=== PATIENT | female | born 1975 | race Caucasian/White ===

== ENCOUNTER → 2017-04-29 08:03 | Outpatient (CLI) | payer BC, SELFPAY ==
[2017-04-29 12:08] LABS: Absolute Lymphocyte Count 1.19 X10^3/ul (0.83-4.51); Absolute Neutrophil Count 2.2 X10^3/uL (2.0-7.7); Basophil# 0.02 X10^3/uL; Basophil% 0.5 % (0-1); Eosinophil# 0.07 X10^3/uL; Eosinophils% 1.8 % (0-5); Hematocrit 39.8 % (37-47); Hemoglobin 12.7 g/dl (12.0-15.0); Lymphocyte # 1.19 X10^3/ul (4.0); Lymphocyte % 30.9 % (19-41); Mean Corp Hgb Conc 31.9 g/gl (32-36); Mean Corpuscular Hgb 29.6 pg (27.0-32.0); Mean Corpuscular Volume 92.8 fL (81-99); Mean Platelet Vol. 10.9 fl (6.2-12.0); Monocyte% 10.4 % (0-10); Neutrophil # 2.17 X10^3/uL (2.7-7.7); Neutrophil % 56.4 % (47-70); Platelet Count 192 K/mm3 (150-450); RBC Distribution Width CV 12.9 % (11.6-14.6); RBC Distribution Width SD 42.8 fl (35.1-43.9); Red Blood Count 4.29 M/mm3 (4.2-5.4); White Blood Count 3.9 K/mm3 (4.4-11.0)
[2017-04-29 12:15] LABS: POSITIVE COUNT NO; POSITIVE DIFFERENTIAL NO; POSITIVE MORPHOLOGY NO
[2017-04-29 12:21] LABS: ALB/GLOB Ratio 1.1 RATIO (0.9-2.4); AST(SGOT) 7 U/L (15-37); Alanine Aminotransfer ALT/SGPT 26 U/L (13-56); Albumin, Serum 3.6 g/dL (3.2-5.0); Alkaline Phosphatase 72 U/L (45-117); Anion Gap 7 (5-15); BUN 10 mg/dL (7-18); BUN/Creat Ratio 16.9 RATIO (10-20); Calcium,Total 8.3 mg/dL (8.5-10.1); Chloride 105 mmol/L (98-107); Cholesterol 136 mg/dL (200); Creatinine, Serum 0.59 mg/dL (0.55-1.02); EST Glomerular Filtration Rate 119 mL/min (>60); Est Glom Filt Rate - Afr Amer 144 mL/min (>60); Ferritin 9 ng/mL (8-252); Globulin 3.4 g/dL (2.2-4.2); Glucose 90 mg/dL (74-106); High Density Lipoprotein 63 mg/dL; Iron 84 ug/dL (50-170); Sodium Level 140 mmol/L (136-145); Triglycerides 45 mg/dL; Very Low Density Lipoprotein 9 mg/dL (5-40)
[2017-04-29 12:26] LABS: Vitamin B12 163 pg/mL (211-911)
== END ==
PROVIDERS: Family Provider Family Medicine; PCP Family Medicine; Visit Provider Family Medicine
DX: D64.9 Anemia, unspecified (principal); E61.1 Iron deficiency; E53.8 Deficiency of other specified B group vitamins; Z98.84 Bariatric surgery status; E78.5 Hyperlipidemia, unspecified
CPT/HCPCS: 36415; 80053; 80061; 82607; 82728; 83540; 85025

== ENCOUNTER → 2017-05-05 13:56 | Outpatient (CLI) | payer BC, SELFPAY ==
--- NOTE | 2017-05-05 14:06 | RAD_ITS ---
STUDY: X-RAY - SACRUM/COCCYX REASON FOR EXAM: Female, 41 years old. Pain TECHNIQUE: 4 view(s) of the sacrum and coccyx were obtained. COMPARISON: None. FINDINGS: Normal bilateral sacroiliac joints. Normal visualized sacral ala and fused sacral bodies. Normal sacrococcygeal junction with a normal angulation. Normal coccygeal segments. The presacral soft tissue structures are unremarkable. RAD/Sacrum-Coccyx min 2 Views IMPRESSION: Normal x-rays of the sacrum and coccyx. Electronically Signed: Nicholas Anderson DO at 21:55 EST Tel [phone], Service support ,
--- NOTE | 2017-05-05 14:06 | RAD_ITS ---
STUDY: X-RAY - LUMBAR SPINE REASON FOR EXAM: Female, 41 years old. Pain TECHNIQUE: 3 view(s) of the lumbar spine were obtained. COMPARISON: None FINDINGS: Normal lumbar lordosis. There is no substantial scoliosis. There is a normal alignment of the vertebrae. Normal vertebral bodies and endplates. Normal disc space heights. The soft tissue structures are unremarkable. RAD/Lumbar Spine 2 or 3 Views IMPRESSION: Normal x-ray examination of the lumbar spine. Electronically Signed: Nicholas Anderson DO at 21:54 EST Tel [phone], Service support ,
== END ==
PROVIDERS: Family Provider Family Medicine; PCP Family Medicine; Visit Provider Family Medicine
DX: M54.5 Low back pain (principal); R22.2 Localized swelling, mass and lump, trunk; M53.3 Sacrococcygeal disorders, not elsewhere classified
CPT/HCPCS: 72100; 72220

== ENCOUNTER → 2018-01-28 16:41 | Outpatient (CLI) | payer BC, SELFPAY ==
[2014-10-09 06:27] VITALS: BMI 29.2
[2018-01-28 17:23] LABS: Hematocrit 39.1 % (37-47); Mean Corp Hgb Conc 30.7 g/gl (32-36); Mean Corpuscular Hgb 27.4 pg (27.0-32.0); Mean Corpuscular Volume 89.3 fL (81-99); Mean Platelet Vol. 10.6 fl (6.2-12.0); Platelet Count 267 K/mm3 (150-450); RBC Distribution Width CV 14.4 % (11.6-14.6); RBC Distribution Width SD 47.1 fl (35.1-43.9); Red Blood Count 4.38 M/mm3 (4.2-5.4); White Blood Count 5.8 K/mm3 (4.4-11.0)
[2018-01-28 17:24] LABS: Scan Indicated on CBC? Y/N NO
[2018-01-28 17:59] LABS: Thyroid Stim Hormone (TSH) 1.75 uIU/mL (0.358-3.74)
[2018-01-28 18:09] LABS: Hemoglobin A1c 5.6 % (4.2-6.3)
--- OUTSIDE RECORDS SUMMARY | 2018-03-25 22:51 | XMS RPT_ITS ---
:1975 Author Organization [facility] Care Team Providers Name Role Phone Elva Bush Attending Unavailable Malys, Elva Primary Care Unavailable Malys, Elva Attending Unavailable Malys, Elva Referring Unavailable Malys, Elva Primary Care Unavailable Jose Gerber Attending Unavailable Malys, Elva Primary Care Unavailable PROBLEMS PROBLEMS DATE TYPE CONDITION / CODE ATTENDING STATUS SOURCE 04/29/2017 Unknown D64.9 - Anemia, Malys, Elva Active [facility] unspecified / Community D64.9(ICD-10) Hospital Repository 04/29/2017 Unknown E61.1 - Iron Malys, Elva Active [place] deficiency / Community E61.1(ICD-10) Hospital Repository 04/29/2017 Unknown E53.8 - Malys, Elva Active [facility] Deficiency of Community other specified B Hospital group vitamins / Repository E53.8(ICD-10) 04/29/2017 Unknown Z98.84 - Malys, Elva Active [facility] Bariatric surgery Community status / Hospital Z98.84(ICD-10) Repository 04/29/2017 Unknown E78.5 - Malys, Elva Active [facility] Hyperlipidemia, Community unspecified / Hospital E78.5(ICD-10) Repository PROCEDURES PROCEDURES No Procedure Records FoundRESULTS RESULTS CBC-COMPLETE BLOOD CNT Collected: 01/28/2018 Status: F Source: [place] NO DIFF 4:42 [place] [facility] [place] CODE TESTS RESULT OUT OF RANGE REFERENCE UNITS LAB L100.1000 4.4-11.0 K/mm3 Normal WBC 5.8 LAB L100.1200 4.2-5.4 M/mm3 Normal RBC 4.38 LAB L100.1300 12.0-15.0 g/dl Normal HGB 12.0 LAB L100.1400 37-47 % Normal HCT 39.1 LAB L100.1500 81-99 fL Normal MCV 89.3 LAB L100.1600 27.0-32.0 pg Normal MCH 27.4 LAB L100.1700 32-36 g/gl Low MCHC 30.7 LAB L100.1810 11.6-14.6 % Normal RDW CV 14.4 LAB L100.1820 35.1-43.9 fl High RDW SD 47.1 LAB L100.1900 150-450 K/mm3 Normal PLT 267 LAB L100.2000 6.2-12.0 fl Normal MPV 10.6 Performed By: #### L100.0500 #### [facility] [address] [place], [place], [id number] THYROID STIM HORMONE Collected: 01/28/2018 Status: F Source: [place] (TSH) 4:42 PM [facility] [place] CODE TESTS RESULT OUT OF RANGE REFERENCE UNITS LAB L501.9520 0.358-3.74 uIU/mL Normal TSH 1.75 Performed By: #### L501.9520 #### [facility] [address] [place], [place], [id number] HEMOGLOBIN A1C Collected: 01/28/2018 Status: F Source: [place] 4:42 PM [facility] [place] CODE TESTS RESULT OUT OF RANGE REFERENCE UNITS LAB L501.9985 4.2-6.3 % Normal HGB A1C 5.6 Performed By: #### L501.9985 #### [facility] [address] [place], [address] LUMBAR SPINE 2 OR 3 Observed: 05/05/2017 Status: F Source: [place] VIEWS 2:06 PM [facility] HOSPITAL REPOSITORY [facility] Imaging Services [address] [place] [address] Lumbar Spine 2 or 3 Views MR#: [id number] Acct: [id number] Name: CAROLYN CASTAÑEDA Rep #: [id number] : 1975 F 41 From: Nicholas Anderson DO PCP: Elva Bush DO Status: REG CLI Study: Lumbar Spine 2 or 3 Views Date of Exam: 05/05/17 Exam# [id number] Ordering Dr: Elva Bush DO STUDY: X-RAY - LUMBAR SPINE REASON FOR EXAM: Female, 41 years old. Pain TECHNIQUE: 3 view(s) of the lumbar spine were obtained. COMPARISON: None FINDINGS: Normal lumbar lordosis. There is no substantial scoliosis. There is a normal alignment of the vertebrae. Normal vertebral bodies and endplates. Normal disc space heights. The soft tissue structures are unremarkable. RAD/Lumbar Spine 2 or 3 Views IMPRESSION: Normal x-ray examination of the lumbar spine. Electronically Signed: Nicholas Anderson DO at 21:54 EST Tel [phone], Service support , CC: Elva Bush DO Block Piler: Signed SACRUM-COCCYX MIN 2 VIEWS Observed: 05/05/2017 Status: F Source: [place] 2:06 PM [facility] HOSPITAL REPOSITORY [facility] Imaging Services [address] [place] [address] Sacrum-Coccyx min 2 Views MR#: [id number] Acct: [id number] Name: CAROLYN CASTAÑEDA Ruddy Rep #: [id number] : 1975 F 41 From: Nicholas Anderson DO PCP: Elva Bush DO Status: REG CLI Study: Sacrum-Coccyx min 2 Views Date of Exam: 05/05/17 Exam# [id number] Ordering Dr: Elva Bush DO STUDY: X-RAY - SACRUM/COCCYX REASON FOR EXAM: Female, 41 years old. Pain TECHNIQUE: 4 view(s) of the sacrum and coccyx were obtained. COMPARISON: None. FINDINGS: Normal bilateral sacroiliac joints. Normal visualized sacral ala and fused sacral bodies. Normal sacrococcygeal junction with a normal angulation. Normal coccygeal segments. The presacral soft tissue structures are unremarkable. RAD/Sacrum-Coccyx min 2 Views IMPRESSION: Normal x-rays of the sacrum and coccyx. Electronically Signed: Nicholas Anderson DO at 21:55 EST Tel [phone], Service support , CC: Elva Bush DO Block Piler: Signed CBC W/DIFF, AUTOMATED Collected: 04/29/2017 Status: F Source: [place] 8:06 AM [facility] [place] CODE TESTS RESULT OUT OF RANGE REFERENCE UNITS LAB L100.1000 4.4-11.0 K/mm3 Low WBC 3.9 LAB L100.1200 4.2-5.4 M/mm3 Normal RBC 4.29 LAB L100.1300 12.0-15.0 g/dl Normal HGB 12.7 LAB L100.1400 37-47 % Normal HCT 39.8 LAB L100.1500 81-99 fL Normal MCV 92.8 LAB L100.1600 27.0-32.0 pg Normal MCH 29.6 LAB L100.1700 32-36 g/gl Low MCHC 31.9 LAB L100.1810 11.6-14.6 % Normal RDW CV 12.9 LAB L100.1820 35.1-43.9 fl Normal RDW SD 42.8 LAB L100.1900 150-450 K/mm3 Normal PLT 192 LAB L100.2000 6.2-12.0 fl Normal MPV 10.9 LAB L100.2100 47-70 % Normal NEUT% 56.4 LAB L100.2200 19-41 % Normal LY% 30.9 LAB L100.2300 0-10 % High MONO% 10.4 LAB L100.2400 0-5 % Normal EO% 1.8 LAB L100.2500 0-1 % Normal BASO% 0.5 LAB L100.2550 0.0-0.9 % Normal IM GRAN % 0.000 Result Comment: IG% - Immature Granulocytes (promyelocytes, myelocytes and metamyelocytes) > 1% indicates that a LEFT SHIFT is Present. LAB L100.2620 2.0-7.7 X10 3/uL Normal Absolute Neut 2.2 LAB L100.2720 0.83-4.51 X10 3/ul Normal Absolute Lymph 1.19 Performed By: #### L100.0100 #### [facility] [address] [place], [address] COMPREHENSIVE METABOLIC Collected: 04/29/2017 Status: F Source: [facility] 8:06 AM [facility] [place] CODE TESTS RESULT OUT OF RANGE REFERENCE UNITS LAB L501.0100 74-106 mg/dL Normal GLU 90 Result Comment: Please note revised GLUCOSE reference range effective 2017. LAB L501.1000 7-18 mg/dL Normal BUN 10 LAB L501.1100 0.55-1.02 mg/dL Normal CREAT,SERUM 0.59 Result Comment: The validity of the calculated GFR AND GFRAA in patients over 70 years has not been determined. Clinical correlation is essential. LAB L501.1110 >60 mL/min Normal EST GFR 119 Result Comment: Non- GFR Calc LAB L501.1115 >60 mL/min Normal EST GFR - AA 144 Result Comment: GFR Calc LAB L501.1300 10-20 RATIO Normal BUN/CRE 16.9 LAB L501.1500 6.4-8.2 g/dL T Normal PROT 7.0 LAB L501.1800 3.2-5.0 g/dL Normal ALB 3.6 LAB L501.1950 2.2-4.2 g/dL Normal GLOB 3.4 LAB L501.2000 0.9-2.4 RATIO Normal A/G 1.1 LAB L501.2200 8.5-10.1 mg/dL Low CA 8.3 LAB L501.4100 15-37 U/L Low AST 7 LAB L501.4305 45-117 U/L Normal ALK P 72 LAB L501.4405 13-56 U/L Normal ALT 26 Result Comment: Please note revised ALT reference range effective 2017. LAB L501.4600 0.20-1.00 mg/dL Normal T BILI 0.60 LAB L501.5300 136-145 mmol/L Normal NA 140 LAB L501.5600 3.5-5.1 mmol/L Normal K 4.0 LAB L501.5900 98-107 mmol/L Normal CL 105 LAB L501.6100 21.0-32.0 mmol/L Normal CO2 28.0 LAB L501.6200 5-15 Normal GAP 7 Performed By: #### L500.4050, L500.4100, L503.6150, L503.6550 #### [facility] [address] [place], [address] LIPID PROFILE Collected: 04/29/2017 Status: F Source: [place] 8:06 AM [facility] [place] CODE TESTS RESULT OUT OF RANGE REFERENCE UNITS LAB L501.4900 200 mg/dL Normal CHOL 136 Result Comment: <200 mg/dL Desirable 200-240 mg/dL Borderline >240 mg/dL High Risk LAB L501.5000 mg/dL Normal TRIG 45 Result Comment: The drugs N-Acetylcysteine and Metamizole may falsely depress this assay. Serum Triglycerides Reference Interval Normal <150 mg/dL Borderline high 150 - 199 mg/dL High 200 - 499 mg/dL Very High > or = 500 mg/dL LAB L501.6400 mg/dL Normal HDL 63 Result Comment: The drugs N-Acetylcysteine and Metamizole may falsely depress this assay. Reference Range HDL <40 mg/dL Low HDL Cholesterol HDL >or= 60 mg/dL High HDL Cholesterol LAB L501.6500 0-130 mg/dL Normal LDL 64 LAB L501.6600 5-40 mg/dL Normal VLDL 9 Performed By: #### L500.4050, L500.4100, L503.6150, L503.6550 #### [facility] [address] [place], [address] IRON Collected: 04/29/2017 Status: F Source: [place] 8:06 AM [facility] [place] CODE TESTS RESULT OUT OF RANGE REFERENCE UNITS LAB L503.6150 50-170 ug/dL Normal IRON 84 Performed By: #### L500.4050, L500.4100, L503.6150, L503.6550 #### [facility] [address] [place], [address] FERRITIN Collected: 04/29/2017 Status: F Source: [place] 8:06 AM [facility] [place] CODE TESTS RESULT OUT OF RANGE REFERENCE UNITS LAB L503.6550 8-252 ng/mL Normal FERRITIN 9 Performed By: #### L500.4050, L500.4100, L503.6150, L503.6550 #### [facility] [address] [place], [address] VITAMIN B12 Collected: 04/29/2017 Status: F Source: [place] 8:06 AM [facility] [place] CODE TESTS RESULT OUT OF REFERENCE UNITS RANGE LAB L503.0105 211-911 pg/mL Low Vitamin B12 163 Performed By: #### L503.0105 #### [facility] [address] [place], [address] ALLERGIES ALLERGIES DATE TYPE / CODE NAME / CODE REACTION SEVERITY SOURCE 10/02/2014 Drug methyldopa/F Other Unknown [facility] Allergy/4160 [id number]( Hospital 57419(SNOMED NORM) Repository CT) ENCOUNTERS ENCOUNTERS ADMIT/DISCHARGE ACCOUNT ADMITTING ENCOUNTER LOCATION SOURCE NUMBER CLASS 01/28/2018 [id number] Ambulatory [facility] 1 [facility] ing:WOBLAB Repository 05/05/2017 [id number] Ambulatory [facility] 2 [facility] ing:RAD Repository 04/29/2017 [id number] Ambulatory [facility] 7 [facility] ing:BFHLAB Repository PAYERS PAYERS ENCOUNTER GUARANTOR PAYER SUBSCRIBER SOURCE 01/28/2018 Kg Primary CAROLYN Tim [id number] Sammie Insurance:ANTHEMPolic URCONISDOB: [facility] [place], [place] Number: [id number] Hospital [id number]: (330 [id number] Repository [phone] () Date:[id number] [address] [place] [id number]: 01/28/2018 Secondary NOT GIVENUNK [facility] Insurance:SELF PAY [facility] Number: Effective Repository Date:2018-01-28 05/05/2017 Kg Primary CAROLYN Tim [id number] [place] Insurance:ANTHEMPolic URCONISDOB: [facility] [place] Number: [id number] Hospital [id number]: (330 [id number] Repository [phone] () Date:[id number] [address] [place] [id number]: 05/05/2017 Secondary NOT GIVENUNK [facility] Insurance:SELF PAY [facility] Number: Effective Repository Date:2017-05-05 04/29/2017 Kg Primary CAROLYN Tim [id number] [place] Insurance:ANTHEMPolic URCONISDOB: [facility] [place] Number: [id number] Hospital [address]Yrd: (330 [id number] Repository [phone] () Date:[id number] [address] [place] [address] [id number]: 04/29/2017 Secondary NOT GIVENUNK [place] Insurance:SELF PAY [facility] Number: Effective Repository Date:2017-04-29
== END ==
PROVIDERS: Family Provider Family Medicine; PCP Family Medicine; Visit Provider Obstetrics & Gynecology
DX: R53.81 Other malaise (principal); N95.1 Menopausal and female climacteric states
CPT/HCPCS: 36415; 83036; 84443; 85027

== ENCOUNTER → 2018-03-29 13:57 | Outpatient (CLI) | payer BC, SELFPAY ==
--- NOTE | 2018-03-29 14:00 | BI_ITS ---
MAMMOGRAPHY - BILATERAL SCREENING REASON FOR EXAM: Female, 42 years old. Routine annual screening examination. PERTINENT HISTORY: Non-contributory. TECHNIQUE: Digital bilateral breast jeovanny (3D mammographic acquisition) in the CC and MLO projections. 2-D mediolateral oblique (MLO) and craniocaudad (CC) views of both breasts were obtained. CAD: Full Field Digital Mammography with Computer Added Detection was performed. COMPARISON: Comparison is made with prior study dated July 31, 2016. FINDINGS: Breast Composition: The breasts are almost entirely fatty. There are no dominant masses or suspicious calcifications. No other significant abnormalities are identified. There has been no significant change since the prior study. BI/SCREENING MAMM (CAD), BILAT IMPRESSION: Stable bilateral screening mammogram. Yearly follow-up mammogram recommended. (A) ASSESSMENT CATEGORY: BIRADS Category 1: Negative. A letter regarding these results will be sent to the patient by the facility within 30 days. Approximately 10% of breast cancers are not detected by mammography. A normal mammogram should not delay biopsy of a clinically suspicious abnormality. [id number] Electronically Signed: Harvey Medina MD at 10:15 EST , Service support ,
== END ==
PROVIDERS: Family Provider Family Medicine; PCP Family Medicine; Referring Provider Obstetrics & Gynecology; Visit Provider Obstetrics & Gynecology
DX: Z12.31 Encounter for screening mammogram for malignant neoplasm of breast (principal)
CPT/HCPCS: 77063; 77067

== ENCOUNTER 2018-09-12 18:10 | Observation (INO) | payer BC, SELFPAY ==
[2018-09-12 18:11] VITALS: BP 146/94; PULSE 100; RESP 18; TEMP 37.5; O2SAT 97; BMI 30.9
[2018-09-12] MEDS: Morphine 4 MG/ML Syringe IV (19:19)
[2018-09-12] MEDS: Ondansetron 4 MG/2 ML Vial IV (19:19)
[2018-09-12 19:21] LABS: Absolute Lymphocyte Count 0.78 X10^3/ul (0.83-4.51); Absolute Neutrophil Count 6.2 X10^3/uL (2.0-7.7); Basophil# 0.01 X10^3/uL; Basophil% 0.1 % (0-1); Eosinophil# 0.02 X10^3/uL; Eosinophils% 0.3 % (0-5); Hematocrit 36.7 % (37-47); Hemoglobin 11.6 g/dl (12.0-15.0); Lymphocyte # 0.78 X10^3/ul (4.0); Lymphocyte % 10.2 % (19-41); Mean Corp Hgb Conc 31.6 g/gl (32-36); Mean Corpuscular Volume 88.4 fL (81-99); Mean Platelet Vol. 10.8 fl (6.2-12.0); Monocyte% 9.1 % (0-10); Neutrophil # 6.16 X10^3/uL (2.7-7.7); Neutrophil % 80.2 % (47-70); Platelet Count 172 K/mm3 (150-450); RBC Distribution Width CV 14.9 % (11.6-14.6); Red Blood Count 4.15 M/mm3 (4.2-5.4); White Blood Count 7.7 K/mm3 (4.4-11.0)
[2018-09-12 19:28] LABS: POSITIVE COUNT NO; POSITIVE DIFFERENTIAL NO; POSITIVE MORPHOLOGY NO
[2018-09-12 19:33] LABS: ALB/GLOB Ratio 0.8 RATIO (0.9-2.4); AST(SGOT) 15 U/L (15-37); Alanine Aminotransfer ALT/SGPT 37 U/L (13-56); Albumin, Serum 3.2 g/dL (3.2-5.0); Alkaline Phosphatase 54 U/L (45-117); Anion Gap 5 (5-15); BUN 8 mg/dL (7-18); BUN/Creat Ratio 11.6 RATIO (10-20); Calcium,Total 8.2 mg/dL (8.5-10.1); Chloride 106 mmol/L (98-107); Creatinine, Serum 0.69 mg/dL (0.55-1.02); EST Glomerular Filtration Rate 98 mL/min (>60); Est Glom Filt Rate - Afr Amer 119 mL/min (>60); Globulin 3.8 g/dL (2.2-4.2); Glucose 111 mg/dL (74-106); Lipase 109 U/L (73-393); Potassium 3.6 mmol/L (3.5-5.1); Sodium Level 139 mmol/L (136-145)
--- NOTE | 2018-09-12 19:38 | ED.VIS.GEN ---
History of Present Illness Chief Complaint: Abd Pain Informant: Patient Onset: Today Context: Sudden Onset Timing: Continuous Quality: Sharp Location: And left upper quadrant Current Severity: Mild Maximum Severity: Severe Worsened by: P.o. intake Relieved by: Nothing Associated Symptoms: Nausea, bloating Narrative: Patient is a 42-year-old woman status post cholecystectomy who presents with bilateral sharp abdominal pain that is worse with p.o. intake. She states even water makes it worse. She denies fever, chills night sweats. Does report nasal congestion which he felt was secondary to recent travel. She does complain of nonproductive cough and mild shortness of breath. She denies leg pain, swelling or discoloration. There is no history of PE or DVT. She denies urologic symptoms. She denies back pain. There is no history of trauma. She has not noted a rash. Prior similar symptoms: No Recent Illness/Hospitalization: No - Past Medical History (1) Gastroenteritis Status: Acute (2) History of gastric bypass Status: Chronic Comment: (3) Iron deficiency anemia Status: Chronic Past Medical History - Allergies and Home Meds Allergies/Adverse Reactions: Allergies methyldopa Allergy (Verified 09/12/18 18:11) Other TACHYCARDIA Primary Care Physician: Elva Bush DO [Primary Care Provider] - 5-7 Days Surgical History: cholecystectomy, gastric bypass, tonsillectomy, - - tubal ligation, C section, endometrial ablation, Lives: Spouse/ Significant Other Smoking Status: Never smoker Drugs: None - Family History Maternal Family History: Reports: - - Her mother of lung Cancer, she was a smoker. There is a hx of DM in a maternal aunt Paternal Family History: Reports: - - her father traumatically in an accident Review of Systems General: Denies: Chills, Fever, Sweats Eyes: Denies: Visual changes - bilaterally, Diplopia ENT: Denies: Bilateral ear pain, Rhinorrhea, Sore throat Cardiovascular: Denies: Chest pain, Palpitations Respiratory: Denies: Dyspnea, Cough, Dyspnea on exertion Gastrointestinal: Reports: Abdominal pain, Nausea. Denies: Diarrhea, Constipation - Last bowel movement yesterday and normal for patient, Melena, Hematochezia Genitourinary: Denies: Dysuria, Hematuria, Frequency Musculoskeletal: Denies: Back pain, Extremity Pain Skin: Denies: Rash, Wounds Neurological: Denies: Headache, Weakness, Parasthesia, Numbness Hematologic: Denies: Easy bruising, Easy bleeding Allergy: Denies: Uticaria, Swelling of the mouth Physical Exam Vital Signs/Narrative: Vital Signs Temp Pulse Resp BP Pulse Ox 09/12/18 18:11 99.5 F H 100 18 146/94 H 97 Inital Vital Signs reviewed: Yes General: Well nourished, Well developed, No Acute Distress Head: Normocephalic, Atraumatic Eyes: Perrl, EOMI. Negative for: Pale conjunctiva, Scleral icterus, - ENT: Moist mucous membranes, No rhinorrhea, TM's clear Neck: Negative for: Supple, Nontender, No lymphadenopathy, No JVD, - Cardiovascular: Regular rate, Regular rhythm, No murmurs, Normal S1, Normal S2 Respiratory: No distress, CTA bilaterally, Chest nontender Abdomen: Soft, Nondistended, No masses, Tender, Hypoactive bowel sounds. Negative for: Normal bowel sounds, Guarding, Rebound tenderness, Hyperactive bowel sounds, Hepatomegaly, Splenomegaly, Mass Back: Nontender, Normal Inspection. Negative for: CVA tenderness, Spinal tenderness Extremities: Nontender, No edema Skin: Normal color, No rash Neurological: Alert, Oriented x3, Cranial nerves II-XII grossly intact, Normal Strength, Normal Sensation Psychological: Tearful Diagnostic/Tx/Re-eval Impressions Abdomen/Pelvis CT 09/12/18 20:37 IMPRESSION: Status post Manny-en-Y gastric bypass surgery. Prominent inflammatory changes of an approximately 25 cm long segment of the manny segment of jejunum. This is remote from the gastrojejunal anastomotic site and the jejunojejunal anastomotic site, and therefore it is unlikely to represent peptic ulcer disease or anastomotic complication. He always uncertain, however, presumably, this represents an infectious process or an immune-mediated process. Would consider upper endoscopy for further evaluation. Nonvisualization of the gallbladder with mild bile duct dilatation, probably representing previous cholecystectomy and physiologic bile duct dilatation. Suggest correlation with surgical history. Previous hysterectomy. 2.5 cm complex left ovarian cyst, probably representing a recently ruptured and partially collapsed cyst. Small amount of free fluid in the posterior cul-de-sac of the pelvis. Mild splenomegaly. Small splenic cysts. No evidence for appendicitis or diverticulitis. No evidence for bowel obstruction or ileus. Electronically Signed: Kj Head MD at 21:26 EDT , Service support , 09/12/18 20:37 Abdomen/Pelvis W IV Cont ONLY [CT] Stat Laboratory Results 09/12/18 09/12/18 19:00 19:00 WBC 7.7 RBC 4.15 L Hgb 11.6 L Hct 36.7 L MCV 88.4 MCH 28.0 MCHC 31.6 L RDW 14.9 H RDW Differential 48.0 H Plt Count 172 MPV 10.8 Immature Gran % (Auto) 0.100 Neut % (Auto) 80.2 H Lymph % (Auto) 10.2 L Story % (Auto) 9.1 Eos % (Auto) 0.3 Baso % (Auto) 0.1 Absolute Neuts (auto) 6.2 Absolute Lymphs (auto) 0.78 L Total Counted Not Reportable Sodium 139 Potassium 3.6 Chloride 106 Carbon Dioxide 28.0 Anion Gap 5 BUN 8 Creatinine 0.69 Estim Creat Clear Calc 111.00 Est GFR (MDRD) Af Amer 119 Est GFR (MDRD) Non-Af 98 BUN/Creatinine Ratio 11.6 Glucose 111 H Calcium 8.2 L Total Bilirubin 0.30 AST 15 ALT 37 Alkaline Phosphatase 54 Total Protein 7.0 Albumin 3.2 Globulin 3.8 Albumin/Globulin Ratio 0.8 L Lipase 109 - Medical Decision Making Bilateral upper abdominal pain nausea will obtain CBC to assess white count and H&H. Electrode panel was obtained to assess renal function in the event a CT is warranted. Patient was informed of CAT scan results. Since there is concern this represents inflammatory process and where the inflammation is will treat with PPI and systemic steroids. This is not an area that is accessible by endoscopy. Plan is to administer IV Decadron and IV Pepcid. If patient is able to tolerate liquids will discharge to home. Vision unable to tolerate clear liquids will page hospitalist for admission ED Disposition - Plan for ED Patient: Disposition: Home or Assisted Living Diagnosis: Jejunitis Referrals: Elva Bush DO [Primary Care Provider] - 5-7 Days
--- NOTE | 2018-09-12 20:37 | CT_ITS ---
STUDY: CT ABDOMEN AND PELVIS WITHOUT CONTRAST REASON FOR EXAM: Female, 42 years old. Upper abdominal pain. Nausea and fever. Previous gastric bypass. RADIATION DOSAGE (If Supplied By Facility): CTDIvol = ( 14.99 ) mGy, DLP = ( 1320.54 ) mGycm TECHNIQUE: Transaxial images were obtained from the dome of the diaphragm to the symphysis pubis without oral contrast, and without intravenous contrast. Sagittal and coronal images were reconstructed. Individualized dose optimization techniques were used for this CT. COMPARISON: None. FINDINGS: The visualized lung bases are unremarkable. The visualized portions of the heart are within normal limits. Normal liver. There is nonvisualization of the gallbladder, probably representing a previous cholecystectomy, but possibly representing contracted gallbladder. There is mild central intrahepatic bile duct dilatation and the common bile is prominent at 8 mm, which may be normal physiologic changes if the patient has had previous cholecystectomy. The spleen is mildly enlarged. There are small splenic cysts. Normal pancreas. Normal bilateral adrenal glands. Normal right kidney. Normal left kidney. The patient is status post gastrojejunostomy with Manny-en-Y jejunal-jejunal anastomosis. There is no evidence for breakdown of the anastomotic site and the proximalmost manny segment of jejunum is normal in appearance, with no demonstrated mural thickening to suggest peptic ulcer disease. However, there is prominent mural thickening of an approximately 25 cm long segment of the Manny segment of jejunum, commencing about 15 cm from the gastrojejunal anastomotic site. Presumably this represents an inflammatory process, however, the significance of its location and limited distribution is uncertain.. The remainder of the small bowel appears normal. Normal colon. The appendix is visualized on coronal images 53-77 and it appears normal.. Normal abdominal aorta. Normal inferior vena cava. Normal retroperitoneum. Normal urinary bladder. There is absence of the uterus consistent with a prior hysterectomy. There is a small amount of free fluid in the posterior cul-de-sac the pelvis. There is a 2.5 cm thick-walled left ovarian cyst with irregular contours, probably representing a recently ruptured and partially collapsed cyst. Normal abdominal wall. Normal osseous structures. CT/Abdomen/Pelvis W IV Cont ONLY IMPRESSION: Status post Manny-en-Y gastric bypass surgery. Prominent inflammatory changes of an approximately 25 cm long segment of the manny segment of jejunum. This is remote from the gastrojejunal anastomotic site and the jejunojejunal anastomotic site, and therefore it is unlikely to represent peptic ulcer disease or anastomotic complication. He always uncertain, however, presumably, this represents an infectious process or an immune-mediated process. Would consider upper endoscopy for further evaluation. Nonvisualization of the gallbladder with mild bile duct dilatation, probably representing previous cholecystectomy and physiologic bile duct dilatation. Suggest correlation with surgical history. Previous hysterectomy. 2.5 cm complex left ovarian cyst, probably representing a recently ruptured and partially collapsed cyst. Small amount of free fluid in the posterior cul-de-sac of the pelvis. Mild splenomegaly. Small splenic cysts. No evidence for appendicitis or diverticulitis. No evidence for bowel obstruction or ileus. Electronically Signed: Kj Head MD at 21:26 EDT , Service support ,
[2018-09-12 22:00] VITALS: BP 128/81; PULSE 88; RESP 18; TEMP 36.9; O2SAT 98
[2018-09-12] MEDS: dexAMETHasone 10 MG/ML Vial IV (22:11)
--- NOTE | 2018-09-12 22:47 | PCM.HP.STD ---
Problem List (1) Abdominal pain Status: Acute Qualifiers: Abdominal location: unspecified location Qualified Code(s): R10.9 - Unspecified abdominal pain History of Present Illness Date of Admission: 09/12/18 Chief Complaint: Abdominal pain - 2 days The patient is a 42 year old F with past medical history of bariatric surgery (Manny-en-Y), status post cholecystectomy obesity who comes in with complaints of abdominal pain that started suddenly 1 day prior to admission. Patient was on vacation in [place] when she had sudden onset of dull burning abdominal pain that is in the upper part of the abdomen and seem to radiate to her back. Pain is constant, and associated with nausea and bloatedness. Pain is worse when she tries to eat or drink. She tried moving her bowels, has had 4 liquid stools. Also complains of subjective fever and chills. Denies any dizziness or palpitations or chest pain or shortness of breath. She never had any episodes like this before. Vitals in the ED showed temperature 99.5 F, heart rate 100, blood pressure 146/94, respirations 18, SPO2 97% on room air. BC count is 7.7, hemoglobin 11.6, platelet count 172, CMP is unremarkable. CT scan of the abdomen and pelvis was suggestive of a 25 cm long segment of the Manny/segment of the jejenum, remote from the gastrojejunal anastomotic site and the jejunal jejunal anastomosis site. 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 Gerber Lives: Spouse/ Significant Other Smoking Status: Never smoker Alcohol: None Drugs: None - *Family History Maternal History Items: - - Her mother of lung Cancer, she was a smoker. There is a hx of DM in a maternal aunt Paternal History Items: - - her father traumatically in an accident Review of Systems Constitutional: Reports: Chills, Fever. Denies: Anorexia, Malaise, Weakness, Weight Change, Fatigue Eyes: Denies: Blurred vision, Cataracts, Conjunctivae Inflammation, Pain, Redness, Vision Change HEENT: Denies: Difficulty Hearing, Difficulty Swallowing, Head Aches, Hearing Changes, Sinus Congestion, Sinus Drainage Cardiovascular: Denies: Chest Pain, Claudication, Orthopnea, Palpitations, Paroxysmal Noc. Dyspnea Respiratory: Denies: Cough, Shortness of breath at rest, Shortness of breath upon exertion, Sputum production Gastrointestinal: Denies: Abdominal Pain, Hematemesis, Hematochezia, Nausea, Vomiting Genitourinary: Denies: Dysuria, Frequency, Incontinence Musculoskeletal: Denies: Joint Pain, Joint stiffness, Joint swelling, Joint Tenderness Skin: Denies: Rash, Wounds Neurological: Denies: Difficulty swallowing, Focal weakness, Numbness, Tingling Psychiatric: Denies: Anxiety, Depression, Homicidal Ideations, Suicidal Ideations Hematologic/ Lymphatic: Denies: Easy Bruising, Easy Bleeding VTE Information - Inpt Only VTE Present on Admission: No VTE Pharm Prophylaxis ordered?: Yes Patient Problems: Active and Suspected Problems Jejunitis (Acute) Abdominal pain (Acute) - Physical Exam General: Alert, Oriented x3, Cooperative, No apparent distress, - - Obese HEENT: Atraumatic, PERRLA, EOMI, Normocephalic Oral: Moist Mucosa Neck: Supple Lungs: Clear to auscultation, Normal air movement Cardiovascular: Regular rate, Regular Rhythm, Normal S1, Normal S2, No murmurs Abdomen: Bowel Sounds Present, Soft, Non-Distended, No Hepato-splenomegaly, Tender - in the upper abdomen Extremities: No edema Skin: No rashes, No breakdown Musculoskeletal: No Tenderness to Palpation of Joints or Extremities Lymphatic: No Cervical, Supraclavicular, or Inguinal Adenopathy Neurological: Cranial nerves II-XII grossly intact, Neuro grossly intact Psych/Mental Status: Normal Affect, Appropriate Vital Signs Temp Pulse Resp BP Pulse Ox 98.4 F 88 18 128/81 H 98 09/12/18 22:00 09/12/18 22:00 09/12/18 22:00 09/12/18 22:00 09/12/18 22:00 Oxygen Delivery Method Room Air Weight: 95 kg Body Mass Index (BMI) 30.9 Laboratory Tests Past 24 Hrs 09/12/18 09/12/18 19:00 19:00 WBC 7.7 RBC 4.15 L Hgb 11.6 L Hct 36.7 L MCV 88.4 MCH 28.0 MCHC 31.6 L RDW 14.9 H RDW Differential 48.0 H Plt Count 172 MPV 10.8 Immature Gran % (Auto) 0.100 Neut % (Auto) 80.2 H Lymph % (Auto) 10.2 L [place] % (Auto) 9.1 Eos % (Auto) 0.3 Baso % (Auto) 0.1 Absolute Neuts (auto) 6.2 Absolute Lymphs (auto) 0.78 L Total Counted Not Reportable Sodium 139 Potassium 3.6 Chloride 106 Carbon Dioxide 28.0 Anion Gap 5 BUN 8 Creatinine 0.69 Estim Creat Clear Calc 111.00 Est GFR (MDRD) Af Amer 119 Est GFR (MDRD) Non-Af 98 BUN/Creatinine Ratio 11.6 Glucose 111 H Calcium 8.2 L Total Bilirubin 0.30 AST 15 ALT 37 Alkaline Phosphatase 54 Total Protein 7.0 Albumin 3.2 Globulin 3.8 Albumin/Globulin Ratio 0.8 L Lipase 109 Assessment/Plan All Active Problems Jejunitis (Acute) Abdominal pain (Acute) Hypokalemia (Acute) Leukopenia (Acute) Gastroenteritis (Acute) 42 year old F with past medical history of bariatric surgery (Manny-en-Y), status post cholecystectomy obesity who comes in with complaints of abdominal pain that started suddenly 1 day prior to admission. 1. Acute abdominal pain secondary to jejunitis, unclear etiology, CT of the abdomen and pelvis shows possible inflammatory vs infectious etiology No family history of inflammatory bowel disease, history of bariatric surgery(Manny-en-Y) Plan: Admit to [facility] n.p.o[facility] general surgery consult-consulted from the ED, IV Solu-Medrol, IV Cipro, IV Flagyl, IV fluids, symptomatic management of pain with morphine as needed. 2. Morbid obesity, BMI 32.3, status post bariatric surgery 3. DVT prophylaxis with heparin subcu Code Visit Inpatient E&M: 45087 Init Hosp L3
[2018-09-12 23:38] VITALS: BP 135/85; PULSE 87; RESP 18; TEMP 37.2; O2SAT 97
[2018-09-12 23:41] VITALS: BMI 32.3
[2018-09-12 23:49] VITALS: BMI 32.3
[2018-09-12] MEDS: 0.9% Normal Saline 1,000 ML 100 ML IV (23:56)
[2018-09-13] VITALS (7 sets, daily range): BP systolic 104–120; BP diastolic 63–69; PULSE 61–78; RESP 16; TEMP 36.1–37.1; O2SAT 96–99
[2018-09-13] MEDS: Morphine 2 MG/ML Syringe IV (00:15)
[2018-09-13] MEDS: metroNIDAZOLE 500 MG/100 ML BAG 100 MG IV ×3 (00:40→14:13)
[2018-09-13] MEDS: 0.9% NaCl Peripheral Flush Adult/Peds IV ×2 (00:41→01:51)
[2018-09-13] MEDS: Ciprofloxacin 400 MG/200 ML BAG 200 MG IV ×2 (02:23→09:16)
[2018-09-13] MEDS: Heparin Injection (Vial) 5,000 UNIT/ML VIAL 5000 UNIT SC ×2 (06:08→14:12)
[2018-09-13 06:24] LABS: Absolute Lymphocyte Count 0.56 X10^3/ul (0.83-4.51); Absolute Neutrophil Count 8.1 X10^3/uL (2.0-7.7); Basophil# 0.01 X10^3/uL; Basophil% 0.1 % (0-1); Hematocrit 35.7 % (37-47); Hemoglobin 11.3 g/dl (12.0-15.0); Lymphocyte # 0.56 X10^3/ul (4.0); Lymphocyte % 6.3 % (19-41); Mean Corp Hgb Conc 31.7 g/gl (32-36); Mean Corpuscular Volume 88.4 fL (81-99); Mean Platelet Vol. 11.7 fl (6.2-12.0); Monocyte# 0.17 X10^3/uL; Monocyte% 1.9 % (0-10); Neutrophil # 8.12 X10^3/uL (2.7-7.7); Neutrophil % 91.5 % (47-70); Platelet Count 148 K/mm3 (150-450); RBC Distribution Width CV 14.9 % (11.6-14.6); Red Blood Count 4.04 M/mm3 (4.2-5.4); White Blood Count 8.9 K/mm3 (4.4-11.0)
[2018-09-13 06:40] LABS: Differential Indicated SCAN CRITERIA MET; POSITIVE COUNT NO; POSITIVE DIFFERENTIAL YES; POSITIVE MORPHOLOGY NO
[2018-09-13 06:56] LABS: Anion Gap 7 (5-15); BUN 8 mg/dL (7-18); BUN/Creat Ratio 11.7 RATIO (10-20); Calcium,Total 8.4 mg/dL (8.5-10.1); Chloride 106 mmol/L (98-107); Creatinine, Serum 0.68 mg/dL (0.55-1.02); EST Glomerular Filtration Rate 100 mL/min (>60); Est Glom Filt Rate - Afr Amer 121 mL/min (>60); Estimated Creatinine Clearance 108.72 ml/min; Glucose 108 mg/dL (74-106); Potassium 3.9 mmol/L (3.5-5.1); Sodium Level 140 mmol/L (136-145)
--- NOTE | 2018-09-13 07:11 | PCM.PROGNOTE ---
Patient Problems: Active and Suspected Problems Jejunitis (Acute) Abdominal pain (Acute) Subjective: The patient is a 42-year-old female with past medical history of bariatric surgery (Manny-en-Y) who presented to the emergency department at [facility] on 09/12/2018 complaining of abdominal pain for the preceding 48 hours. The pain radiated to her back, was constant nd was associated with nausea. She had subjective fevers and chills. CT scan of the abdomen and pelvis showed prominent inflammatory changes of an approximately 25 cm long segment of the Manny segment of the jejunum. The segment was remote from the gastrojejunal anastomotic site and the jejunojejunal anastomotic site. she denied personal or family hx of IBD. CBC revealed a white blood cell count of 7.7 with a left shift. CMP was unremarkable and lipase was within normal limits. She was admitted to the hospital with a diagnosis of acute abdominal pain secondary to enteritis of unclear etiology. She was started on Cipro, Flagyl, IV Solu-Medrol, fluids and pain medication. Consult was ordered with general surgery. Temp at admission was 99.5 but she has been afebrile since. Vital signs were stable. She is maintaining an oxygen saturation of 97 to 99% on room air. She is continues to complain of mild nausea but has not had an emesis since yesterday afternoon at approximately 12 PM. That was also the time of her last bowel movement. She does have a little burning in her throat which may be secondary to prior episodes of emesis. Her gastric bypass surgery was in [address] Kevon Majano and she has not had any problems since that time. She was in [place] and flew back on an overnight flight.....arriving in [place] yesterday early AM. - Physical Exam General: Alert, Oriented x3, Cooperative, No apparent distress, Well developed, Well nourished Oral: Moist Mucosa Lungs: Clear to auscultation Cardiovascular: Regular rate, Regular Rhythm, Normal S1, Normal S2, No murmurs, No Ectopic Activity, No rub noted, No Gallop Abdomen: Soft, Non-Distended, Hypoactive Bowel Sounds, Tender - in the upper abdomen but, no guarding with palpation Extremities: No edema Neurological: Cranial nerves II-XII grossly intact, Neuro grossly intact Psych/Mental Status: Normal Affect, Appropriate Vital Signs Temp Pulse Resp BP Pulse Ox 97.0 F L 70 16 104/63 99 09/13/18 05:40 09/13/18 05:40 09/13/18 05:40 09/13/18 05:40 09/13/18 05:40 Oxygen Delivery Method Room Air Weight: 215 lb 9.793 oz Body Mass Index (BMI) 32.3 Intake and Output for Last 24 Hours 09/11/18 09/12/18 09/13/18 23:59 23:59 23:59 Intake Total 780 / 780 Output Total 600 / 600 Balance 180 / 180 Laboratory Tests Past 24 Hrs 09/12/18 09/12/18 09/13/18 19:00 19:00 05:30 WBC 7.7 RBC 4.15 L Hgb 11.6 L Hct 36.7 L MCV 88.4 MCH 28.0 MCHC 31.6 L RDW 14.9 H RDW Differential 48.0 H Plt Count 172 MPV 10.8 Immature Gran % (Auto) 0.100 Neut % (Auto) 80.2 H Lymph % (Auto) 10.2 L [place] % (Auto) 9.1 Eos % (Auto) 0.3 Baso % (Auto) 0.1 Absolute Neuts (auto) 6.2 Absolute Lymphs (auto) 0.78 L Total Counted Not Reportable Sodium 139 140 Potassium 3.6 3.9 Chloride 106 106 Carbon Dioxide 28.0 27.0 Anion Gap 5 7 BUN 8 8 Creatinine 0.69 0.68 Estim Creat Clear Calc 111.00 108.72 Est GFR (MDRD) Af Amer 119 121 Est GFR (MDRD) Non-Af 98 100 BUN/Creatinine Ratio 11.6 11.7 Glucose 111 H 108 H Calcium 8.2 L 8.4 L Total Bilirubin 0.30 AST 15 ALT 37 Alkaline Phosphatase 54 Total Protein 7.0 Albumin 3.2 Globulin 3.8 Albumin/Globulin Ratio 0.8 L Lipase 109 09/13/18 05:30 WBC 8.9 RBC 4.04 L Hgb 11.3 L Hct 35.7 L MCV 88.4 MCH 28.0 MCHC 31.7 L RDW 14.9 H RDW Differential 48.0 H Plt Count 148 L MPV 11.7 Immature Gran % (Auto) 0.200 Neut % (Auto) 91.5 H Lymph % (Auto) 6.3 L [place] % (Auto) 1.9 Eos % (Auto) 0.0 Baso % (Auto) 0.1 Absolute Neuts (auto) 8.1 H Absolute Lymphs (auto) 0.56 L Total Counted Pending Sodium Potassium Chloride Carbon Dioxide Anion Gap BUN Creatinine Estim Creat Clear Calc Est GFR (MDRD) Af Amer Est GFR (MDRD) Non-Af BUN/Creatinine Ratio Glucose Calcium Total Bilirubin AST ALT Alkaline Phosphatase Total Protein Albumin Globulin Albumin/Globulin Ratio Lipase Medical Necessity - Tobacco Use Smoking Status: Never smoker Assessment/Plan All Active Problems Jejunitis (Acute) Abdominal pain (Acute) Hypokalemia (Acute) Leukopenia (Acute) Gastroenteritis (Acute) Impressions 1. Suspected gastroenteritis-illness came on suddenly and I doubt peptic ulcer disease or inflammatory bowel disease. There is no personal or family history of inflammatory bowel disease. 2. History of Manny-en-Y gastric bypass surgery in 2003 3. Obesity No diarrhea, vomiting in 24 hours. Discontinue Solu-Medrol, Cipro and Flagyl Start clear liquids and continue antiemetics Recheck lab in the a.m. Code Visit OBSV E&M: 65172 Subsequent observation care L2
[2018-09-13 07:16] LABS: Differential Comment SCANNED
--- NOTE | 2018-09-13 08:20 | CON.PCM_ITS ---
Problem List (1) Jejunitis Status: Acute Reason for Consult Date of Consultation: 09/13/18 History of Present Illness: The patient is a 42 year old F presented to the emergency room for mid abdominal cramping. She says she was unable to drink anything yesterday. Today she says that she is feeling much better and she is not having any cramping. Her pain is minimal. She has no nausea or vomiting this morning. 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 Gerber Lives: Spouse/ Significant Other Smoking Status: Never smoker Alcohol: None Drugs: None - *Family History Maternal History Items: - - Her mother of lung Cancer, she was a smoker. There is a hx of DM in a maternal aunt Paternal History Items: - - her father traumatically in an accident Review of Systems Constitutional: Reports: Anorexia. Denies: Fever HEENT: Denies: Difficulty Swallowing Cardiovascular: Denies: Chest Pain Respiratory: Denies: Cough, Shortness of Breath Gastrointestinal: Reports: Abdominal Pain, Nausea. Denies: Hematemesis, Hematochezia, Vomiting Musculoskeletal: Denies: Joint Tenderness Neurological: Denies: Balance problems Psychiatric: Denies: Depression Hematologic/ Lymphatic: Denies: Anemia Patient Problems: Active and Suspected Problems Jejunitis (Acute) Abdominal pain (Acute) - Physical Exam General: Alert, Oriented x3 Neck: No JVD Lungs: Normal air movement Cardiovascular: Regular rate, Regular Rhythm Abdomen: Soft, Non-Distended Extremities: No clubbing Skin: No rashes Musculoskeletal: No Muscle Wasting Neurological: Cranial nerves II-XII grossly intact Psych/Mental Status: Normal Affect Vital Signs Temp Pulse Resp BP Pulse Ox 97.0 F L 70 16 104/63 99 09/13/18 05:40 09/13/18 05:40 09/13/18 05:40 09/13/18 05:40 09/13/18 05:40 Oxygen Delivery Method Room Air Weight: 215 lb 9.793 oz Body Mass Index (BMI) 32.3 Intake and Output for Last 24 Hours 09/11/18 09/12/18 09/13/18 23:59 23:59 23:59 Intake Total 780 / 780 Output Total 600 / 600 Balance 180 / 180 Laboratory Tests Past 24 Hrs 09/12/18 09/12/18 09/13/18 19:00 19:00 05:30 WBC 7.7 RBC 4.15 L Hgb 11.6 L Hct 36.7 L MCV 88.4 MCH 28.0 MCHC 31.6 L RDW 14.9 H RDW Differential 48.0 H Plt Count 172 MPV 10.8 Immature Gran % (Auto) 0.100 Neut % (Auto) 80.2 H Lymph % (Auto) 10.2 L [place] % (Auto) 9.1 Eos % (Auto) 0.3 Baso % (Auto) 0.1 Absolute Neuts (auto) 6.2 Absolute Lymphs (auto) 0.78 L Total Counted Not Reportable Differential Comment Sodium 139 140 Potassium 3.6 3.9 Chloride 106 106 Carbon Dioxide 28.0 27.0 Anion Gap 5 7 BUN 8 8 Creatinine 0.69 0.68 Estim Creat Clear Calc 111.00 108.72 Est GFR (MDRD) Af Amer 119 121 Est GFR (MDRD) Non-Af 98 100 BUN/Creatinine Ratio 11.6 11.7 Glucose 111 H 108 H Calcium 8.2 L 8.4 L Total Bilirubin 0.30 AST 15 ALT 37 Alkaline Phosphatase 54 Total Protein 7.0 Albumin 3.2 Globulin 3.8 Albumin/Globulin Ratio 0.8 L Lipase 109 09/13/18 05:30 WBC 8.9 RBC 4.04 L Hgb 11.3 L Hct 35.7 L MCV 88.4 MCH 28.0 MCHC 31.7 L RDW 14.9 H RDW Differential 48.0 H Plt Count 148 L MPV 11.7 Immature Gran % (Auto) 0.200 Neut % (Auto) 91.5 H Lymph % (Auto) 6.3 L [place] % (Auto) 1.9 Eos % (Auto) 0.0 Baso % (Auto) 0.1 Absolute Neuts (auto) 8.1 H Absolute Lymphs (auto) 0.56 L Total Counted Not Reportable Differential Comment SCANNED Sodium Potassium Chloride Carbon Dioxide Anion Gap BUN Creatinine Estim Creat Clear Calc Est GFR (MDRD) Af Amer Est GFR (MDRD) Non-Af BUN/Creatinine Ratio Glucose Calcium Total Bilirubin AST ALT Alkaline Phosphatase Total Protein Albumin Globulin Albumin/Globulin Ratio Lipase Clinical Impression(s) from Imaging Studies Abdomen/Pelvis CT 09/12/18 20:37 IMPRESSION: Status post Manny-en-Y gastric bypass surgery. Prominent inflammatory changes of an approximately 25 cm long segment of the manny segment of jejunum. This is remote from the gastrojejunal anastomotic site and the jejunojejunal anastomotic site, and therefore it is unlikely to represent peptic ulcer disease or anastomotic complication. He always uncertain, however, presumably, this represents an infectious process or an immune-mediated process. Would consider upper endoscopy for further evaluation. Nonvisualization of the gallbladder with mild bile duct dilatation, probably representing previous cholecystectomy and physiologic bile duct dilatation. Suggest correlation with surgical history. Previous hysterectomy. 2.5 cm complex left ovarian cyst, probably representing a recently ruptured and partially collapsed cyst. Small amount of free fluid in the posterior cul-de-sac of the pelvis. Mild splenomegaly. Small splenic cysts. No evidence for appendicitis or diverticulitis. No evidence for bowel obstruction or ileus. Electronically Signed: Kj Head MD at 21:26 EDT , Service support , Assessment/Plan All Active Problems Jejunitis (Acute) Abdominal pain (Acute) Hypokalemia (Acute) Leukopenia (Acute) Gastroenteritis (Acute) 42-year-old female with jejunitis 1. Patient has thickening of the jejunum distal to her esophageal anastomosis. She was started on steroids and a PPI and she feels much better today. She says that she is not having cramping anymore. I do not know how much benefit she would gain from an endoscopy as this segment is distal and may not be reachable with endoscope. Also patient has normal white count and her pain is improving. I would recommend trying her on a liquid diet and see how she does. If she is doing well she can be discharged home on a liquid diet. Kmaeron Garber MD Pager: [facility] [address] [place] [address], [address] [place] [address] Office:
[2018-09-13] MEDS: 0.9% Normal Saline 1,000 ML 100 ML IV (21:41)
[2018-09-14 02:20] VITALS: BP 110/67; PULSE 69; RESP 16; TEMP 36.6; O2SAT 98
[2018-09-14 06:18] LABS: Hematocrit 31.5 % (37-47); Hemoglobin 9.8 g/dl (12.0-15.0); Mean Corp Hgb Conc 31.1 g/gl (32-36); Mean Corpuscular Hgb 27.5 pg (27.0-32.0); Mean Corpuscular Volume 88.2 fL (81-99); Mean Platelet Vol. 11.8 fl (6.2-12.0); Platelet Count 131 K/mm3 (150-450); RBC Distribution Width CV 14.6 % (11.6-14.6); RBC Distribution Width SD 45.7 fl (35.1-43.9); Red Blood Count 3.57 M/mm3 (4.2-5.4); White Blood Count 7.2 K/mm3 (4.4-11.0)
[2018-09-14 06:19] LABS: Scan Indicated on CBC? Y/N NO
[2018-09-14 06:38] LABS: Anion Gap 4 (5-15); BUN 8 mg/dL (7-18); BUN/Creat Ratio 17.2 RATIO (10-20); Calcium,Total 8.1 mg/dL (8.5-10.1); Chloride 111 mmol/L (98-107); Creatinine, Serum 0.46 mg/dL (0.55-1.02); EST Glomerular Filtration Rate 156 mL/min (>60); Est Glom Filt Rate - Afr Amer 188 mL/min (>60); Estimated Creatinine Clearance 160.71 ml/min; Glucose 98 mg/dL (74-106); Potassium 3.8 mmol/L (3.5-5.1); Sodium Level 140 mmol/L (136-145)
[2018-09-14 08:18] VITALS: BP 125/83; PULSE 71; RESP 16; TEMP 36.8; O2SAT 100
--- NOTE | 2018-09-14 10:57 | DCINST_ITS ---
- Discharge Diagnoses Current Active Problems: Current Active and Chronic Problems Jejunitis (Acute) Abdominal pain (Acute) You will use the following diet at home:: Other - I would stick to a bland full liquid diet for the next 24 to 48 hours and then advance as tolerated. No caffeine....it increases gastric acid secretion and causes spasms of the intestines and increased stooling Your food should be the consistency of: Soft (bite-sized & easy to chew/swallow) Your liquids should be the consistency of: Regular/Thin Discharge Activity: Return to Normal Activity Call your doctor if you observe: Fever of 101 or Higher, - - recurrent abdmominal pain, intractable nausea and or vomiting, severe diarrhea Additional Instructions: I think you have gastroenteritis. this is infalmmation ofthe stomach and the intestines that causes nausea, vomiting, abdominal pain and cramping and diarrhea. It is usually due to a virus.....this is marcia a prblem associated with cruise ships.....it is very contagious. The treatment is supportive and includes hydrating, antiemetics and immodium or Kaopectate. I have given you a prescription for PEPcid to decrease the acid in the stomach for the next 10 days and a presciption for Zofran which you can take as needed for nausea and vomiting every 8 hours. I will send a cpy of your discharge summary to Dr. Bush. The ovarian cyst and small cysts in the spleen are nothing to worry about. Pending Tests on Discharge: none Allergies/Adverse Reactions: Allergies methyldopa Allergy (Verified 09/12/18 18:11) Other TACHYCARDIA Medications to take at Discharge Famotidine [Pepcid] 40 mg PO BID #20 tab 09/14/18 Ondansetron [Zofran Odt] 4 mg PO Q8H PRN PRN #10 tab 09/14/18 The following prescriptions were given: Famotidine [Pepcid] 40 mg PO BID #20 tab Transmission Status: Pending to [facility] Ondansetron [Zofran Odt] 4 mg PO Q8H PRN PRN #10 tab PRN Reason: nausea and/or vomiting Transmission Status: Pending to [facility] Primary Care Physician: Elva Bush DO [Primary Care Provider] - 5-7 Days Please follow up with your Primary Care Physician in: 5-7 days Test Results: Test results from this visit will be discussed in further detail at your follow- up appointment, if applicable. Proposed Discharge Date: 09/14/18
--- NOTE | 2018-09-14 11:11 | PCM.DC.SUM ---
Discharge Date and Diagnosis - Problem List Patient Problems: Active and Suspected Problems Left ovarian cyst (Acute) Thrombocytopenia (Acute) Abdominal pain (Acute) Date of Admission: 09/12/18 Date of Discharge: 09/14/18 - Primary Discharge Diagnosis Active and Suspected Problems Abdominal pain (Acute) Gastroenteritis - likely viral Left ovarian cyst (Acute) - may be chronic, no prior testing to compare to Thrombocytopenia (Acute) - possibly due to heparin vs viral - Secondary Discharge Diagnosis Chronic Problems Splenic cysts (Chronic) History of Angela-en-Y gastric bypass (Chronic) - 2003 Obesity (Chronic) Iron deficiency anemia (Chronic) Menorrhagia (Chronic) Hospital Course and Treatment Imaging Results: Clinical Impression(s) from Imaging Studies Abdomen/Pelvis CT 09/12/18 20:37 IMPRESSION: Status post Angela-en-Y gastric bypass surgery. Prominent inflammatory changes of an approximately 25 cm long segment of the angela segment of jejunum. This is remote from the gastrojejunal anastomotic site and the jejunojejunal anastomotic site, and therefore it is unlikely to represent peptic ulcer disease or anastomotic complication. He always uncertain, however, presumably, this represents an infectious process or an immune-mediated process. Would consider upper endoscopy for further evaluation. Nonvisualization of the gallbladder with mild bile duct dilatation, probably representing previous cholecystectomy and physiologic bile duct dilatation. Suggest correlation with surgical history. Previous hysterectomy. 2.5 cm complex left ovarian cyst, probably representing a recently ruptured and partially collapsed cyst. Small amount of free fluid in the posterior cul-de-sac of the pelvis. Mild splenomegaly. Small splenic cysts. No evidence for appendicitis or diverticulitis. No evidence for bowel obstruction or ileus. Electronically Signed: Kj Head MD at 21:26 EDT , Service support , Laboratory Results - last 24 hr 09/14/18 09/14/18 05:46 05:46 WBC 7.2 RBC 3.57 L Hgb 9.8 L Hct 31.5 L MCV 88.2 MCH 27.5 MCHC 31.1 L RDW 14.6 RDW Differential 45.7 H Plt Count 131 L MPV 11.8 Sodium 140 Potassium 3.8 Chloride 111 H Carbon Dioxide 25.0 Anion Gap 4 L BUN 8 Creatinine 0.46 L Estim Creat Clear Calc 160.71 Est GFR (MDRD) Af Amer 188 Est GFR (MDRD) Non-Af 156 BUN/Creatinine Ratio 17.2 Glucose [address] Kameron Garber[place] general surgery Operations: None Procedures: None Summary of Care Provided: The patient is a 42-year-old female with a past medical history of bariatric surgery (Angela-en-Y in 2003) on no chronic medications who presented to the emergency department at [facility] on 09/12/2018 complaining of abdominal pain for the preceding 48 hours. The pain radiated to her back, was constant and associated with nausea. She had subjective fevers and chills. She had recently been on vacation and she was on a cruise ship. CT scan of the abdomen and pelvis showed prominent inflammatory changes of an approximately 25 cm long segment of the Angela segment of the jejunum. The segment was remote from the gastrojejunal anastomotic site and the jejunojejunal anastomotic site. She denied personal or family hx of IBD. CBC revealed a white blood cell count of 7.7 with a left shift. CMP was unremarkable and lipase was within normal limits. She was admitted to the hospital with a diagnosis of acute abdominal pain secondary to enteritis of unclear etiology. She was started on Cipro, Flagyl, IV Solu-Medrol, fluids and pain medication. Consult was ordered with general surgery. She was seen by Dr. Garber who did not feel there was an indication for endoscopy. She was started on clear liquids on 09/13/2018 and this was tolerated well. Solu-medrol, Cipro and Flagyl were discontinued because it was felt she likely had viral gastroenteritis. She was advanced to a full liquid diet on 09/14/2018 in the a.m. and tolerated this without nausea, vomiting or recurrent abdominal pain. She was afebrile for the duration of her hospital stay. White blood cell count was within normal limits throughout the stay. On the date of discharge platelets were mildly decreased at 131,000 and I suspect this is related to subcutaneous heparin used for DVT prophylaxis. She was discharged home on 09/14/2018 in stable condition and given prescriptions for Pepcid 40 mg once daily x10 days and Zofran ODT 4 mg 1 sublingual every 8 hours as needed for nausea/vomiting. She will follow-up with Dr. Bush in the office in 3 to 5 days. PHYSICAL EXAM: GENERAL: alert, oriented X 3, Cooperative, NAD ORAL: moist mucosa, no mucosal lesions NECK: No JVD, supple, trachea midline LUNGS: CTA, symmetric chest expansion HEART: RRR, Normal S1 and S2, no rub, no gallop ABDOMEN: soft, NT, ND, BS present, no guarding with palpation EXTREMITIES: no edema, no cyanosis, no calf tenderness SKIN: No rashes, no breakdown NEUROLOGIC: no focal neurologic deficits PSYCH: appropriate, normal affect, pleasant This note was generated with [employer] dictation software. It may contain incorrect words, spelling, and punctuation that were not noted in checking the note before signing. Patient Problems: Active and Suspected Problems Left ovarian cyst (Acute) Thrombocytopenia (Acute) Abdominal pain (Acute) - Physical Exam Vital Signs Temp Pulse Resp BP Pulse Ox 98.2 F 71 16 125/83 H 100 09/14/18 08:18 09/14/18 08:18 09/14/18 08:18 09/14/18 08:18 09/14/18 08:18 Oxygen Delivery Method Room Air Weight: 215 lb 9.793 oz Body Mass Index (BMI) 32.3 Intake and Output for Last 24 Hours 09/12/18 09/13/18 09/14/18 23:59 23:59 23:59 Intake Total 780 / 3255 3443 / 3443 Output Total 600 / 600 800 / 800 Balance 180 / 2655 2643 / 2643 Laboratory Tests Past 24 Hrs 09/14/18 09/14/18 05:46 05:46 WBC 7.2 RBC 3.57 L Hgb 9.8 L Hct 31.5 L MCV 88.2 MCH 27.5 MCHC 31.1 L RDW 14.6 RDW Differential 45.7 H Plt Count 131 L MPV 11.8 Sodium 140 Potassium 3.8 Chloride 111 H Carbon Dioxide 25.0 Anion Gap 4 L BUN 8 Creatinine 0.46 L Estim Creat Clear Calc 160.71 Est GFR (MDRD) Af Amer 188 Est GFR (MDRD) Non-Af 156 BUN/Creatinine Ratio 17.2 Glucose 98 Calcium 8.1 L Discharge Activity: Return to Normal Activity Call your doctor if you observe: Fever of 101 or Higher, - - recurrent abdmominal pain, intractable nausea and or vomiting, severe diarrhea Home Medications: Medications to take at Discharge Famotidine [Pepcid] 40 mg PO BID #20 tab 09/14/18 Ondansetron [Zofran Odt] 4 mg PO Q8H PRN PRN #10 tab 09/14/18 Following Prescrptions Were Given to Patient: Famotidine [Pepcid] 40 mg PO BID #20 tab Transmission Status: Pending to [facility] Ondansetron [Zofran Odt] 4 mg PO Q8H PRN PRN #10 tab PRN Reason: nausea and/or vomiting Transmission Status: Pending to [facility] Primary Care Physician: Elva Bush DO [Primary Care Provider] - 5-7 Days Please follow up with your Primary Care Physician in: 5-7 days Disposition: Home Minutes spent on discharge:: 30 Patient Condition:: Good Medical Necessity - Tobacco Use Smoking Status: Never smoker Tobacco Use: Non-smoker Meaningful Use Info Meaningful Use Diagnoses (Choose all that apply): None applicable Code Visit OBSV E&M: 69886 Observation care discharge
[2018-09-14 11:28] VITALS: BP 121/74; PULSE 68; RESP 16; TEMP 37.1; O2SAT 100
== END 2018-09-14 12:05 | disposition home or self-care (01) ==
LOC: ED 22:34 → MS3 23:11
PROVIDERS: Admitting Provider Internal Medicine; Emergency Provider Emergency Medicine; Family Provider Family Medicine; PCP Family Medicine; Visit Provider Internal Medicine
DX: K52.9 Noninfective gastroenteritis and colitis, unspecified (principal); N83.292 Other ovarian cyst, left side; D69.6 Thrombocytopenia, unspecified; Z98.84 Bariatric surgery status; D50.9 Iron deficiency anemia, unspecified; E66.9 Obesity, unspecified; Z68.32 Body mass index [BMI] 32.0-32.9, adult; Z71.3 Dietary counseling and surveillance
CPT/HCPCS: 36415; 74177; 80048; 80053; 83690; 85025; 85027; 96361; 96365; 96366; 96367; 96372; 96375; 96376; 97802; 99218; 99284; J7030; J7040; Q9967; A4216; G0378; J0744; J2405; J3490

== ENCOUNTER → 2019-03-30 16:10 | Outpatient (CLI) | payer BC, SELFPAY ==
--- NOTE | 2019-03-30 16:12 | BI_ITS ---
MAMMOGRAPHY - BILATERAL SCREENING REASON FOR EXAM: Female, 43 years old. Routine annual screening examination. PERTINENT HISTORY: Non-contributory. TECHNIQUE: Digital bilateral breast hamzah (3D mammographic acquisition) in the CC and MLO projections. 2-D mediolateral oblique (MLO) and craniocaudad (CC) views of both breasts were obtained. CAD: Full Field Digital Mammography with Computer Added Detection was performed. COMPARISON: Comparison is made with prior study dated September 26, 2018 and July 31, 2016. FINDINGS: Breast Composition: The breasts are almost entirely fatty. There are no dominant masses or suspicious calcifications. Small bilateral benign-appearing axillary lymph nodes. No other significant abnormalities are identified. There has been no significant change since the prior study. BI/SCREEN MAMM (CAD) W/HAMZAH BILAT IMPRESSION: Stable bilateral screening mammogram. Yearly follow-up mammogram recommended. (A) ASSESSMENT CATEGORY: BIRADS Category 2: Benign. A letter regarding these results will be sent to the patient by the facility within 30 days. Approximately 10% of breast cancers are not detected by mammography. A normal mammogram should not delay biopsy of a clinically suspicious abnormality. [id number] Electronically Signed: Harvey Medina, at 8:23 EST , Service support ,
== END ==
PROVIDERS: Family Provider Family Medicine; PCP Family Medicine; Referring Provider Obstetrics & Gynecology; Visit Provider Obstetrics & Gynecology
DX: Z12.31 Encounter for screening mammogram for malignant neoplasm of breast (principal)
CPT/HCPCS: 77063; 77067

== ENCOUNTER 2021-08-19 08:56 | Day surgery (SDC) | payer BC, SELFPAY ==
--- NOTE | 2021-08-19 09:03 | HP.PCM_ITS ---
HPI - General HPI Narrative CAROLYN CASTAÑEDA, is a 45 F who presents for screening colonoscopy. Patient's never had a previous colonoscopy. Patient denies any family history of colon cancer. Patient denies any chronic abdominal pain/nausea/reflux/vomiting. Patient's bowel moods daily denies any blood. Patient's only abdominal surgery is laparoscopic gastric bypass. PFSH Medical History Alcohol use Anemia Back pain Basal cell carcinoma History of edema Non-smoker Home Medications cyanocobalamin (vitamin B-12) 1,000 mcg/mL injection solution 1,000 mcg IM QMONTH 06/20/21 [History Last Taken Unknown] ferrous gluconate 324 mg (37.5 mg iron) tablet 324 mg PO DAILY 06/20/21 [History Last Taken Unknown] Allergy/AdvReac Type Severity Reaction Status Date / Time methyldopa Allergy Other Verified 08/15/21 09:44 Family History Mother Lung cancer Surgical History (Updated 08/15/21 @ 09:52 by Bren Mora) History of History of gastric bypass History of hysterectomy Hx laparoscopic cholecystectomy Hx of dilation and curettage Hx of LASIK Hx of shoulder surgery Hx of tonsillectomy Hx of tubal ligation Social History Smoking Status: Never smoker Past Medical/Surgical History Planned Operation Planned Operative Procedure/s: CSCOPE OA S.O.S: No Previous Hospitalizations/Surgeries HX Hospitalizations: No HX of Surgeries: Gastric bypass (2003), cholecystectomy, tonsillectomy, tubal ligation, 2000 SHOULDER, LEFT 2010, endometrial ablation D&C Any Problems With Anesthesia: No You/Your Family Experience Fever (Hyperthermia) With Anes: No Cholinesterase deficiency: No Cardiovascular Hx Chest Pain within Last 2 months: No Hx of Irregular Heartbeat and/or Afib: No Hx Heart Attack: No Hx Congestive Heart Failure: No Hx Rheumatic Fever: No Hx Hypertension: No Hx Internal Defibrillator: No Hx Pacemaker: No Hx Cardiac Catheterization: No Hx Cardiac Surgery/Stents/Etc.: No Hx Stress Test: No Hx Pain in Legs when Walking/Leg Cramps: No Respiratory Chronic Cough: No HX of Shortness of Breath: No Hoarseness: No Hx Chronic Obstructive Pulmonary Disease (COPD): No Hx Asthma: No Hx Emphysema: No Hx Sleep Apnea: No CPAP: No BIPAP: No Hx Respiratory Tract Infection/Cold (presently): No Do You Snore Loudly (louder than talking or can be heard): No Do You Often Feel Tired/ Fatigued/ Sleepy Dring Daytime?: No Has Anyone Observed You Stop Breathing During Sleep?: No Result (for STOP score): Negative Hx Smoking: No Smoking Status: Never smoker Gastrointestinal Hx Gastroesophageal Reflux: No Hx Gastrointestinal Disorders: No Hx Gastrointestinal Bleed: No Hx Ulcer: No Hx Hiatal Hernia: No Difficulty Chewing/Swallowing: No Special diet followed at home: No Hx Unplanned Weight Loss of 20#: No HX Unplanned Weight Gain of 20#: No Neurological Hx Seizures: No HX Syncope/Blackout Spells/Unconsciousness: No Hx Transient Ischemic Attacks (TIA): No Hx Multiple Sclerosis: No Hx Parkinson's Disease: No Hx Head/Neck Injury: No Hx Headaches: No Hx Back Injury/Pain: No Recent Onset of Speech Difficulty: No Restless Legs: No Does patient have nerve stimulator: No Blood Disorder Hx Leukemia: No Bleeding Tendencies: No Hx Deep Vein Thrombosis: No Hx High Cholesterol: No Blood Transmitted Disease: No Hx Hepatitis: No Hx Cirrhosis: No Hx Anemia: Yes (hx) Hx Blood Disorders: No Reproduction : No Is Patient Lactating: Yes Hx Hysterectomy: No Hx Tubal Ligation: Yes Are You Post Menopause: No Genitourinary Hx Renal Disease: No Hx Dialysis: No Musculoskeletal Hx Arthritis: No Hx Rheumatoid Arthritis: No Hx Gout: No Recent Onset of an Orthopedic Problem: No Endocrine Hx Diabetes: No Insulin: No Thyroid Disease: No Hx Steroid Therapy: No Psycho/Social Hx Substance Use: No Hx Alcohol Use: Yes (SOCIALLY) Hx Anxiety: No Hx Depression: No Mental Illness: No Hx Dementia: No Miscellaneous Hx Cancer: No Recent Exposure to Contagious Disease: No Hx of C-Diff: No Any Loose Teeth: No Allergies methyldopa Allergy (Verified 08/15/21 09:44) Other TACHYCARDIA Maternal: Family History Mother Lung cancer - (Her mother of lung Cancer, she was a smoker. There is a hx of DM in a maternal aunt) Paternal: Family History Mother Lung cancer - (her father traumatically in an accident) Discharge Is Pt Admitted From a [facility], or a Residential: No After D/C, Where Do you Plan to Go: Return Home Physical Exam Const alert, oriented x3 and no apparent distress HEENT normocephalic and head/scalp atraumatic Resp normal respiratory effort Cardio regular rate GI soft to palpation and non-tender; Negative for non-distended Palpation: Negative for guarding Extremity no clubbing, cyanosis or edema Neuro CN's II-XII intact bilaterally Psych mental status grossly normal Assessment & Plan Assessment/Plan (1) Encounter for screening for malignant neoplasm of colon: Surgery Risks - Colonoscopy Risks Include but are not Limited To: Risks include but are not limited to: Bleeding, perforation requiring further surgery, inability to complete colonoscopy requiring barium enema.
[2021-08-19 09:20] VITALS: BP 153/87; PULSE 77; RESP 16; TEMP 36.8; O2SAT 98; BMI 34.7
[2021-08-19] MEDS: Lactated Ringers 1,000 ML 15 ML IV (09:32)
--- NOTE | 2021-08-19 10:16 | OP.COLON_ITS ---
Patient Name: Sydnie Clay Procedure Date: 08/19/2021 9:48 AM Date of : 1975 Age: 45 Procedure: Colonoscopy Indications: Screening for colorectal malignant neoplasm Providers: Sunshine Ellis MD Medicines: Monitored Anesthesia Care Patient Profile: This is a 45 year old female. Last Colonoscopy: none. The patient's first colonoscopy is today. Complications: No immediate complications. Procedure: Pre-Anesthesia Assessment: - Prior to the procedure, a History and Physical was performed, and patient medications and allergies were reviewed. The patient's tolerance of previous anesthesia was also reviewed. The risks and benefits of the procedure and the sedation options and risks were discussed with the patient. All questions were answered, and informed consent was obtained. Prior Anticoagulants: The patient has taken no previous anticoagulant or antiplatelet agents. ASA Grade Assessment: Per anesthesia. After reviewing the risks and benefits, the patient was deemed in satisfactory condition to undergo the procedure. After I obtained informed consent, the scope was passed under direct vision. Throughout the procedure, the patient's blood pressure, pulse, and oxygen saturations were monitored continuously. The Colonoscope was introduced through the anus and advanced to the cecum, identified by appendiceal orifice and ileocecal valve. The colonoscopy was performed without difficulty. The patient tolerated the procedure well. Scope In: 9:51:12 AM Scope Withdrawal Time 0 hours 12 minutes 31 seconds Scope Out: 10:11:38 AM Total Procedure Duration Time 0 hours 20 minutes 26 seconds Findings: The perianal and digital rectal examinations were normal. The entire examined colon appeared normal on direct and retroflexion views. Impression: - The entire examined colon is normal on direct and retroflexion views. - No specimens collected. Recommendation: - Discharge patient to home. - Resume previous diet. - Continue present medications. - Repeat colonoscopy in 10 years for screening purposes. Procedure Code(s): --- Professional --- 30067, PT, Colonoscopy, flexible; diagnostic, including collection of specimen(s) by brushing or washing, when performed (separate procedure) Diagnosis Code(s): --- Professional --- Z12.11, Encounter for screening for malignant neoplasm of colon CPT copyright 2017 [employer]. All rights reserved. The codes documented in this report are preliminary and upon furnace tapper review may be revised to meet current compliance requirements. MD Sunshine Verde MD 08/19/2021 10:15:33 AM This report has been signed electronically. Number of Addenda: 0 Note Initiated On: 08/19/2021 9:48 AM
--- NOTE | 2021-08-19 10:16 | OP.CCLET_ITS ---
08/19/2021 Elva Bush [address] [place] [address] Re : Colonoscopy procedure for Sydnie Clay Dear Dr. Bush This procedure was performed on Thursday, August 19, 2021. My impressions and recommendations are as follows: Impressions : - The entire examined colon is normal on direct and retroflexion views. - No specimens collected. Recommendations : - Discharge patient to home. - Resume previous diet. - Continue present medications. - Repeat colonoscopy in 10 years for screening purposes. My findings are described in the full procedure note, which is enclosed. If I can be of further assistance, please feel free to contact me at Doctor phone number(s): , Work: . Sincerely, MD Sunshine Verde MD 08/19/2021 10:15:33 AM This report has been signed electronically.
[2021-08-19 10:17] VITALS: BP 118/71; BP 153/87; PULSE 72; RESP 14; TEMP 36.3; O2SAT 100
[2021-08-19 10:22] VITALS: BP 118/74; BP 153/87; PULSE 68; RESP 14; O2SAT 100
[2021-08-19 10:27] VITALS: BP 126/88; BP 153/87; PULSE 65; RESP 14; O2SAT 100
[2021-08-19 10:33] VITALS: BP 126/82; BP 153/87; PULSE 60; RESP 14; TEMP 36.4; O2SAT 100
[2021-08-19 10:43] VITALS: BP 153/87
== END 2021-08-19 10:51 | disposition home or self-care (01) ==
LOC: EN 08:59 → AC 09:04
PROVIDERS: PCP Family Medicine; Referring Provider Family Medicine; Visit Provider Surgery
PROC: 0DJD8ZZ Inspection of Lower Intestinal Tract, Via Natural or Artificial Opening Endoscopic (ICD-10-PCS; CPT 45378; principal; 2021-08-19 09:55)
DX: Z12.11 Encounter for screening for malignant neoplasm of colon (principal)
CPT/HCPCS: 45378; J7120; J2405

== ENCOUNTER → 2024-10-26 | Outpatient (CLI) | payer BC, SELFPAY ==
[2024-10-26 13:15] LABS: Hematocrit 31.2 % (37-47); Hemoglobin 9.0 g/dL (12.0-15.0); Immature Granulocytes Count 0.020 X10^3/uL (0.0-0.0); Mean Corp Hgb Conc 28.8 g/dL (32-36); Mean Corpuscular Volume 78.4 fL (81-99); Mean Platelet Vol. 10.6 fl (6.2-12.0); NRBC Flagged by Analyzer 0 % (0-5); Platelet Count 328 K/mm3 (150-450); RBC Distribution Width CV 17.8 % (11.6-14.6); RBC Distribution Width SD 50.2 fl (35.1-43.9); Red Blood Count 3.98 M/mm3 (4.2-5.4); White Blood Count 4.7 K/mm3 (4.4-11.0)
[2024-10-26 13:16] LABS: AST(SGOT) 8 U/L (<=31); Alanine Aminotransfer ALT/SGPT 11 U/L (<=34); Albumin, Serum 4.1 g/dL (3.5-5.0); Alkaline Phosphatase 69 U/L (35-104); Anion Gap 10 (5-15); BUN 8 mg/dL (4-19); BUN/Creat Ratio 13.6 RATIO (10-20); Calcium,Total 9.1 mg/dL (7.6-11.0); Carbon Dioxide 24.8 mmol/L (21.0-32.0); Chloride 103 mmol/L (98-108); Cholesterol 136 mg/dL (<=200); Ferritin 5 ng/mL (22-378); Free T3 3.0 pg/mL (2.18-3.98); Globulin 2.8 g/dL (2.2-4.2); Glucose 86 mg/dL (70-99); Low Density Lipoprotein Calc. 73 mg/dL; Potassium 4.5 mmol/L (3.3-5.1); Triglycerides 42 mg/dL; Very Low Density Lipoprotein 8 mg/dL (5-40); Vitamin B12 1249 pg/mL (180-914); cholesterol:hdl ratio screen 2.49
[2024-10-26 14:57] LABS: Iron 21 ug/dL (50-170)
== END | disposition home or self-care (01) ==
LOC: BFHLAB 09:05
PROVIDERS: PCP Family Medicine; Visit Provider Family Medicine
DX: E55.9 Vitamin D deficiency, unspecified (principal); E53.8 Deficiency of other specified B group vitamins; E61.1 Iron deficiency; Z51.81 Encounter for therapeutic drug level monitoring; R06.00 Dyspnea, unspecified; E78.5 Hyperlipidemia, unspecified
CPT/HCPCS: 36415; 80053; 80061; 82607; 82728; 83540; 84439; 84443; 84481; 85025

== ENCOUNTER → 2024-11-07 | Outpatient (CLI) | payer BC, SELFPAY ==
--- NOTE | 2024-11-07 14:16 | BI_ITS ---
EXAM: SCRN MAMM (CAD)W/HAMZAH BILAT DATE: 11/07/2024 CLINICAL HISTORY: F, Age 49 y/o , SCREENING No family history. TECHNIQUE: Procedure Code: [id number] Modality: MG Procedure: SCRN MAMM (CAD)W/HAMZAH BILAT COMPARISON: Prior exam(s) dated March 30, 2019.. FINDINGS: TISSUE DENSITY: There are scattered areas of fibroglandular density. Bilateral Breast Mammographic Findings: No significant masses, calcifications or other abnormalities are identified. Stable small benign-appearing bilateral axillary lymph nodes. No suspicious masses, areas of developing architectural distortion, or suspicious calcifications. There has been no significant interval change. BI/SCRN MAMM (CAD)W/HAMZAH BILAT IMPRESSION: Stable screening bilateral mammogram. OVERALL FINAL ASSESSMENT BI-RADS 2: BENIGN RECOMMENDATION: Routine annual follow-up in 1 Year A letter with findings and recommendations will be mailed to the patient. Reading Location: [facility]
== END | disposition home or self-care (01) ==
PROVIDERS: PCP Family Medicine; Referring Provider Family Medicine; Visit Provider Family Medicine
DX: Z12.31 Encounter for screening mammogram for malignant neoplasm of breast (principal)
CPT/HCPCS: 77063; 77067